=== PATIENT | female | born 2000 | race Caucasian/White ===

== ENCOUNTER 2023-07-26 11:19 | Emergency (ER) | payer BC, SELFPAY ==
[2023-07-26 11:26] VITALS: BP 146/82; PULSE 94; RESP 20; TEMP 36.8; O2SAT 97
--- NOTE | 2023-07-26 12:19 | ED.GENADULT ---
HPI - General Adult General Chief complaint: Upper Respiratory Infection Stated complaint: throat/cough/hard to breathe Source: patient Mode of arrival: ambulatory Limitations: no limitations History of Present Illness HPI narrative: Patient presents for evaluation of sick symptoms for last 3 days. Symptoms include sore throat, cough, and pleuritic chest pain. She has chronic chills, unchanged. She denies any fever, nausea, vomiting, diarrhea. No recent sick contacts to her knowledge. She does smoke several cigarettes per day She took one dose of mucinex but it did not help. Related Data Home Medications Medication Instructions Recorded Confirmed No Home Medications 07/26/23 07/26/23 Allergies Allergy/AdvReac Type Severity Reaction Status Date / Time cefdinir [From Omnicef] Allergy Rash Verified 07/26/23 11:38 Review of Systems Review of Systems: CONSTITUTIONAL: Denies fever, chills, or sweats. EYES: Denies visual changes, redness, or discharge. ENT: Reports sore throat. denies rhinorrhea, congestion, or otalgia. CARDIOVASCULAR: Denies chest pain, palpitations, or edema. RESPIRATORY: Reports cough and pleuritic chest discomfort. Denies shortness of breath. GASTROINTESTINAL: Denies abdominal pain, nausea, vomiting, or diarrhea. GENITOURINARY: Denies dysuria or hematuria. SKIN: Denies rash or itching. MUSCULOSKELETAL: Denies back pain, joint pain, or myalgia. NEUROLOGIC: Denies headache, numbness, dizziness, or weakness. PSYCHIATRIC: Denies anxiety or depression. [facility] Past Medical History Medical History No pertinent past medical history Surgical History Surgical History History of tonsillectomy Family History Family History Mother Family history non-contributory Social History Social History Smoking packs per day: 0.25 Smoking cigarettes per day: 5.0 Smoking status: Current every day smoker Substance use: current Substance use type: marijuana Living arrangements: with family Gender identity (if verbalized by the patient): Female Sexual Orientation (if Verbalized by the Patient): Straight or Heterosexual Spiritual care concerns: No Exam Narrative: GENERAL: Well-appearing, well-nourished, and in no acute distress. HEAD: Normocephalic, atraumatic. EYES: PERRLA and EOMI. ENT: Nares clear, no rhinorrhea or epistaxis. Mucous membranes moist. Oropharynx without tonsillar hypertrophy exudate or other lesions. Bilateral TMs pearly pelayo nonbulging NECK: Supple. No adenopathy or masses. No carotid bruits or JVD CHEST: Clear to auscultation. No respiratory distress. No wheezes rales or rhonchi HEART: Regular rate and rhythm. No murmur heard. Normal peripheral pulses. ABDOMEN: Soft, nontender, nondistended, normal active bowel sounds. EXTREMITIES: Normal range of motion. No edema. SKIN: Warm, dry, no rash. NEURO: No focal deficits. Alert and oriented x3. PSYCH: Normal mood and affect. Course Course Emergency Course: This is a 22-year-old female who presented for evaluation of sick symptoms. COVID, influenza, strep were all negative. I did offer to perform a chest x-ray which she declined. Increase hydration. Jijx-whl-izalzac agents for symptom management. Follow up with primary provider. Go to the ER for worsening symptoms. Patient in agreement with plan of care. Level of Care: Express Care Visit Vital Signs Vital signs: Vital Signs Temperature 36.8 C 07/26/23 11:26 Pulse Rate 94 07/26/23 11:26 Respiratory Rate 20 07/26/23 11:26 Blood Pressure 146/82 H 07/26/23 11:26 Pulse Oximetry 97 07/26/23 11:26 Oxygen Delivery Room Air 07/26/23 11:26 Temperature 36.8 C 07/26/23 11:26 Pulse Rate 94
== END 2023-07-26 12:20 | disposition home or self-care (01) ==
PROVIDERS: Emergency Provider Nurse Practitioner
DX: B34.9 Viral infection, unspecified (principal); Z20.822 Contact with and (suspected) exposure to COVID-19; F17.210 Nicotine dependence, cigarettes, uncomplicated; F12.90 Cannabis use, unspecified, uncomplicated
CPT/HCPCS: 87081; 87426; 87804; 87880; 99213; C9803; G0463

== ENCOUNTER 2024-04-01 08:08 | Emergency (ER) | payer SELFPAY ==
[2024-04-01 08:18] VITALS: BP 153/78; PULSE 151; RESP 18; TEMP 38.8; O2SAT 98
--- NOTE | 2024-04-01 08:29 | ED.URI ---
HPI - URI/Sore Throat General Chief Complaint: Upper Respiratory Infection Stated Complaint: Headache/Body Aches/Cough/Sore Throat Time Seen by Provider: 04/01/24 08:29 Source: patient Mode of arrival: ambulatory Limitations: no limitations History of Present Illness HPI Narrative: 33-year-old female presents with complaint of fever, chills, body aches, headache, fatigue for 2 days. Last took Tylenol yesterday afternoon to treat fever. No chest pain or shortness breath. All systems reviewed and negative except as noted above. Related Data Home Medications Medication Instructions Recorded Confirmed No Home Medications 07/26/23 07/26/23 Allergies Allergy/AdvReac Type Severity Reaction Status Date / Time cefdinir [From Omnicef] Allergy Rash Verified 07/26/23 11:38 Review of Systems Review of Systems: CONSTITUTIONAL: Reports fever, chills, or sweats. EYES: Denies visual changes, redness, or discharge. ENT: Denies rhinorrhea, congestion, sore throat, or otalgia. CARDIOVASCULAR: Denies chest pain, palpitations, or edema. RESPIRATORY: Denies cough or dyspnea. GASTROINTESTINAL: Denies abdominal pain, nausea, vomiting, or diarrhea. GENITOURINARY: Denies dysuria or hematuria. SKIN: Denies rash or itching. MUSCULOSKELETAL: Denies back pain, joint pain. Reports myalgia. NEUROLOGIC: Reports headache. Denies numbness, or weakness. PSYCHIATRIC: Denies anxiety or depression. All other systems reviewed are negative, except as documented in HPI. [facility] Past Medical History Medical History (Updated 04/01/24 @ 08:40 by Priya Howard NP) No pertinent past medical history Surgical History Surgical History History of tonsillectomy Family History Family History Mother Family history non-contributory Social History Social History Smoking packs per day: 0.25 Smoking cigarettes per day: 5.0 Smoking status: Current every day smoker Substance use: current Substance use type: marijuana Living arrangements: with family Gender identity (if verbalized by the patient): Female Sexual Orientation (if Verbalized by the Patient): Straight or Heterosexual Spiritual care concerns: No Comments At time of signature, agree with nursing past medical, surgical, social and family history. There is no relevant family history pertinent to the presenting complaint. Exam Narrative: GENERAL: This is a well-nourished, well-developed patient, ill-appearing but no acute distress HEAD: normocephalic, atraumatic. EYES: PERRL. Sclera clear/white. Vision is grossly intact. EARS: External ears normal, auditory canals clear and without drainage, TMs normal without perforation. Hearing grossly intact. NOSE: External nose normal with clear nasal drainage with erythema and swelling to bilateral nares THROAT: Mucous membranes moist, posterior pharynx clear. NECK: Neck supple, non-tender without lymphadenopathy, masses or thyromegaly. CARDIOVASCULAR: Regular rate and rhythm without murmurs, gallops, or rubs. RESPIRATORY: Clear to auscultation. Breath sounds equal bilaterally. No wheezes, rales, or rhonchi. SKIN: warm, Dry, intact with no suspicious lesions or rash, good texture and turgor. NEURO: awake, alert, and oriented to person, place and time. There were no obvious focal neurologic abnormalities. EXTREMITIES: No joint tenderness, effusion, or edema noted. Course Course Level of Care: Express Care Visit Vital Signs Vital signs: Vital Signs Temperature 38.8 C H 04/01/24 08:18 Pulse Rate 151 H 04/01/24 08:18 Respiratory Rate 18 04/01/24 08:18 Blood Pressure 153/78 H 04/01/24 08:18 Pulse Oximetry 98 04/01/24 08:18 Oxygen Delivery Room Air 04/01/24 08:18 Temperature 38.8 C H 04/01/24 08:18 Pulse Rate 151
[2024-04-01 08:31] LABS: EDSTREPNEGPOS1 Presumptive Negative
[2024-04-01 08:36] LABS: EDINFLUASCREEN Negative; EDINFLUBSCREEN Negative
[2024-04-01 08:46] VITALS: TEMP 38.8
[2024-04-01] MEDS: ACETAMINOPHEN 500 MG TABLET 1000 MG PO (08:46)
== END 2024-04-01 08:50 | disposition home or self-care (01) ==
PROVIDERS: Emergency Provider Nurse Practitioner Family
DX: U07.1 COVID-19 (principal); F17.210 Nicotine dependence, cigarettes, uncomplicated; F12.90 Cannabis use, unspecified, uncomplicated
CPT/HCPCS: 87081; 87426; 87804; 87880; 99213; A9270; G0463

== ENCOUNTER 2024-09-01 15:36 | Emergency (ER) | payer SELFPAY ==
--- NOTE | ~2024-09-01 | XR_ITS ---
EXAMINATION: XR foot LT min 3V DATE: 09/01/2024 16:07 INDICATION: Left foot pain. TECHNIQUE: 4 views of left foot were obtained. COMPARISON: None. FINDINGS: Alignment is normal. No fracture. There is mild osteoarthritis of first metatarsophalangeal joint and talonavicular joint. IMPRESSION: 1. Mild polyarticular osteoarthritis. Reviewed, dictated and finalized at location A. TESTER
--- OUTSIDE RECORDS SUMMARY | 2024-09-01 15:40 | XMS_ITS | Continuity of Care Document ---
Author Organization [facility] Address [address] [place] [address]- Care Team Providers Care Tobacco Prevention Health Educator Name Role Phone None, None Primary Care Physician Encounter Reshma Ankush [id number] Date(s): 08/23/23 - 08/23/23 [facility] [address] [place] [address]- Encounter Diagnosis Contusion of rib on right side(Discharge Diagnosis) - 08/23/23 Discharge Disposition: Routine Discharge Attending Physician: Emergency Services, Medicine Admitting Physician: Emergency Services, Medicine Referring Physician: None, None Allergies, Adverse Reactions, Alerts Substance Reaction Severity Status Omnicef Unknown Active Functional Status 08/23/23 Position in Bed Other (See Comment) Medications Robaxin 500 mg oral tablet 1,000 mg, = 2 Tablet, Orally, 4 Times Daily, for 3 Days, Acute, Dispense: 24 Tablet, Refills: 0, Total Refills: 1, 08/23/23 10:55:00 AM EST, 08/26/23 10:55:00 AM EST, [id number] Start Date: 08/23/23 Stop Date: 08/26/23 Status: Ordered Mental Status 08/23/23 Eye Opening Response Spontaneously Motor Response [place] 3 Obeys Commands Verbal Response [place] Oriented [place] Coma Score 15 Facial Symmetry Symmetric Neurological Defined Limits Awake And Al ert, Able to respond approp/follows commands, Oriented to person, place, and time Orientation Oriented x 3, Aware of Situation, Able to Follow Commands Characteristics of Speech Clear Level of Consciousness Alert Affect/Behavior Calm, Cooperative Neurological Symptoms None 08/23/23 Social Vulnerability Index Score 0.2953 Socioeconomic (SVI) 0.3114 Household Composition & Disability (SVI) 0.0869 Minority Status & Language (SVI) 0.5207 Housing Type & Transportation (SVI) 0.48 05 Problem List Condition Confirmation Course Effective Dates Status Health [facility] Informant Tobacco use Confirmed Active Diagnosis Diagnosis Type Effective Dates Health Status Cl inical Service Informant Contusion of rib on right side Discharge Diagnosis 08/23/23 Procedures Procedure Date Related Diagnosis Body Site Status left wrist surgery Comple mike tonsillectomy Completed Results Radiology Reports * Exam Date Time Procedure Performing Provider Status 08/23/23 10:25 AM XR Ribs Right with PA Chest Samson Palacios MD; Auth (Verified) Notes: (XR Ribs Right with PA Chest) Reason For Exam: fall, pain Report STUDY: XR Ribs Right with PA Chest DATE: 08/23/2023 10:16 AM COMPARISON: None INDICATION: Fall with right lower rib pain. FINDINGS: Single view chest and 3 additional views of the right ribs were obtained. No acute osseous abnormalities are identified. Specifically, no right rib fractures are appreciated. The lungs appear clear and well-expanded. No pneumothorax is seen. The cardiac silhouette mediastinum are unremarkable. IMPRESSION: 1. No active disease in the chest. 2. No rib fractures identified. Electronically Signed by: Chuck Palcaios MD This examination and reported findings have been reviewed and confirmed by the undersigned. Read By: Chuck Palacios MD I authorize my name to be Electronically affixed by using my unique signature access code. Vital Signs Most recent to oldest [Reference Range]: 1 2 Blood Pressure [90-139/60-89 mmHg] 119/8 2mmHg (08/23/23 9:21 AM) Mean Arterial Pressure, Cuff [70-106 mmH g] 94 mmHg (08/23/23 9:21 AM) Peripheral Pulse Rate [60-100 bpm] 75 bp m (08/23/23 9:21 AM) Respiratory Rate [14-20 br/min] 16 br/mi n (08/23/23 9:21 AM) Scale Type Stand up (08/23/23 9:45 AM) Stand up (08/23/23 9:43 AM) Temperature Oral [36.4-37.9 DegC] 36.6 D egC (08/23/23 9:21 AM) Weight 121 kg (08/23/23 9:45 AM) 121 kg (08/23/23 9:43 AM) Weight for Calculation 121.00 kg (08/23/23 9:45 AM) Social History Social History Type Response Smoking Status 10 or more cigarette s (1/2 pack or more)/day in last 30 days entered on: 08/23/23 Sex Hospital Discharge Instructions Patient Education 08/23/2023 09:46:23 [facility]-Understanding E-cigs and Vaping Understanding E-cigarettes and Vaping (Adults/Pediatrics) What are E-cigarettes? E-cigarettes use a battery to heat liquid into an aerosol. Then it is inhaled. There are different kinds of these devices (pods, cartridges and liquid). We do not know what chemicals are in them. We do know they all have propylene glycol, glycerin and flavorings. They are believed to be safe in their original form. What we do not know is how they change when they are heated and inhaled. Current studies show that many of the same chemicals in cigarettes are often in e-cigarettes. They may look like regular cigarettes, cigars, pipes, flashlights or pens. Some even look like a highlighter, a ruiz fob or even an apple watch. This makes it easy for teens to hide them from their parents or teachers. One of the most popular brands, Juul, looks like a USB flash drive. They are so popular that teens now call them ???Juuling?? . Are these devices safe? E-cigarettes may be harmful. They may have substances that cause cancer. Recent studies show vapingis also linked to chronic lung disease and asthma. Nicotine is in cigarettes and e-cigarettes. It is highly addictive. It raises your blood pressure, increases your heart rate and your chance of having a heart attack. Nicotine can have serious and lasting effects on the teen brain that control learning, mood, attention and impulse control. Using nicotine as a teenager can also increase the risk for future addiction to other drugs. Electronic cigarettes are possibly more addictive than cigarettes Nicotine is in both cigarettes and e-cigarettes. It has been determined to impact the brain in the same way as heroin and cocaine. The bad news is that the form of nicotine in e-cigarettes can resultin even higher levels of nicotine. One pod can have more nicotine than a pack of cigarettes. When the voltage is increased on the tank models that also increases the nicotine. Lastly, the nicotine level on the label is often much less than what is really in the vial. These devices are not a smoking cessation aid Although these devices have been marketed as a way to quit smoking, they have not been approved by the Food and Drug Administration (FDA) for this task. Recent studies show that people who used them to quit smoking ended up using both cigarettes and e-cigarettes. Adults are directed to use other FDA approved and proven tobacco treatment medicines. For Help: ??? [place] Tobacco Quitline, 1.800.Quit.Now (258.710.5829) ??? For [employer] Employees, call [employer] 433.829.6964 ??? [employer], 877.44U.QUIT ?? [facility] [employer]. (2014, revised 2020) All Rights Reserved [id number] Physician Emergency department Note * Cayden Guerin: PERFORM, MODIFY, MODIFY, MODIFY Event Display: ED Physician Progress Note Authored Date: [id number] Basic Information Time Seen: Yvette Desai NP / 08/23/2023 09:56 Time seen by provider: 10:08 History source: Pt Arrival mode: POV History limitation: None Chief Complaint back/rib pain History of Present Illness I have verified that the patient has granted permission for visitors to be present during??history taking, physical exam, and results review, including dx and impression. ? History Provided by:??Pt ?? 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 However, she denies any??hitting her head, neck pain, numbness, or weakness.There are no further complaints at this time. ? PCP:?None Review of Systems All pertinent components of a 10 point ROS are negative, except as noted in HPI. Physical Exam/Objective Vitals & Measurements most recent T:??36.6?C??(Oral)?? BP:??119/82?? HR:??75??(Peripheral)?? RR:??16?? SpO2:??98%?? Oxygen Therapy:??Room air?? WT:??121.00??kg??(WFC)?? Pulse ox interpretation:??WNL on RA Constitutional:?No acute distress. Head:?Atraumatic. ??Normocephalic.?? Eyes:?Normal sclera. ??PERRL.?? ENT:?Moist mucosa. ?? Oropharynx is clear and symmetric.??No tonsillar enlargement, exudates, orpus. No nasal discharge.?? Cardiovascular:?Well perfused. ??Equal pulses. ??Regular rate??and rhythm. ??Brisk??capillary refill. ?? Pulmonary/Chest:?No respiratory distress.?Airway patent. ??No tachypnea. ??No accessory muscle usage. CTAB. No rales, rhonchi, or wheezes. Tenderness to right lateral and anterior ribs just beneath the breast. No crepitus or flail chest. Abdominal:??Soft, non-distended.?Non-tender. BS present. Extremities:?No peripheral edema.??No deformities. Skin:?Normal color.??No rashes.??Good skin turgor. No bruising to the chest, abdomen, or flank. Neurological:?Alert, awake, and appropriate. ??Normal speech. ?? Back: No midline spinal tenderness. Medical Decision Making 2. ??Complexity of??orders, data review, and consults??is as follows: ?? The following independent historian provided assessment/history:??patient ?? Category I: Review of records was reviewed including [facility], accompanying paperwork, etc. ?? Independent review of Labs and other test??ordered was performed.? Scheduled Medications?? Dt/Tm Order Placed?Order Detail?? 08/23/2023 10:15 ?acetaminophen?1,000 mg, Orally, Tablet, ONCE, NOW, 08/23/23 10:15:00 EST, 08/23/23 10:15:00 EST? Pulmonary Services?? Dt/Tm Order Placed?Order Detail?? 08/23/2023 09:46 ?Tobacco Cessation Consult?Comment: ??Please complete the Tobacco Cessation Brief Intervention? Radiology Services?? Dt/Tm Order Placed?Order Detail?? 08/23/2023 10:15 ?XR Ribs Right with PA Chest?STAT, For: fall, pain, 08/23/23 10:15:00 EST? The??results available??at time of disposition. ?? Category 1: I have also reviewed all the radiologists interpretation, if available. I have gone over the results with the patient. The patient understands the results may be preliminary and should be contacted if any clinically important findings are noted on the final results. ?? Category 2: ?? Discharge Medications: The pt will be started on the following medications to address clinical findings and diagnoses fromthis emergency department visit: ?? Discharge Medications Robaxin 500 mg oral tablet:??1,000 mg = 2 Tablet, Orally, 4 Times Daily, for 3 Days, 24 Tablet, 0 Refill(s) ?Ordered by:??Yvette Desai NP - 08/23/2023 10:55 ? They understand to follow up as recommended in discharge instructions for further management of diagnosis and/or medications. Re-Assessment Discussed the case with the patient. Discussed the plan for??radiology imaging??to further investigate the patient's condition. Patient understands and is agreeable to the plan. There are no further questions or complaints at time of initial evaluation. ?? 10:57 I re-evaluated the patient, who is resting comfortably and feels comfortable going home.??I discussed??negative XRs and symptomatic??care at home. All questions were appropriately addressed andanswered. I discussed that the patient should f/u with PCP as instructed. Counseling is provided as documented below. RTER instructions were given. The patient is stable for discharge.? Attending??physician: Dr. Hoskins Condition Condition:??Improved, Stable Discharged:??Time 10:57, to home Assessment/Plan Diagnosis: 1.) Acute right rib contusion Patient Education [facility]-Understanding E-cigs and Vaping Follow Up With When Contact Information Follow up with primary care provider Within 3 to 5 days Additional Instructions: Chronic Problem List Tobacco use Procedure/Surgical History ???left wrist surgery???tonsillectomy Medications Home Medications (1) Active Robaxin 500 mg oral tablet??1,000 mg = 2 Tablet, Orally, 4 Times Daily Medication Administration Given acetaminophen, 1000 mg, Orally Allergies Omnicef Social History Alcohol Denies Electronic Cigarette/Vaping E-Cigarette Use 1-25 inhales/day. Substance Abuse Denies Tobacco Tobacco Use: 10 or more cigarettes (1/2 pack or more)/day in last 30 days. Family History None reported Diagnostic Results XR Ribs Right with PA Chest ?? 08/23/23 10:26:18 IMPRESSION: 1. No active disease in the chest. 2. No rib fractures identified. ?? Cayden Gueirn Electronically Signed on 08/23/23 20:55 EST Yvette Desai NP Nathanael Hoskins MD Patient Care team information Care Team Personnel Name: Alaina Colon Position: EV ED: Rotary Veneer Machine Operator Member Role: ED Rotary Veneer Machine Operator Name: Noni Mercer RN Position: Nurse - Emergency Medicine Member Role: Registered Nurse Name: Yvette Desai NP Position: OE: Emergency ANYI Member Role: ED Nurse Practioner
--- OUTSIDE RECORDS SUMMARY | 2024-09-01 15:40 | XMS_ITS | Continuity of Care Document ---
Author Name [employer] Organization Interface Problems Problem Status Onset Date Classification Date Reported Comments Source Contusion of right chest wall 08/23/2023 04/04/2024 [facility] Contusion of rib on right side Active 08/23/2023 04/04/2024 [facility] Tobacco use Active 04/04/2024 [facility] Nicotine dependence (disorder) 04/04/2024 [facility] Fall in bath or shower (finding) 04/04/2024 [facility] Medications Medication Details Route Status Patient Instructions Ordering Provider Order Date Source Robaxin 500 mg oral tablet
1,000 mg, = 2 Tablet, Orally, 4 Times Daily, for 3 Days, Acute, Dispense: 24 Tablet, Refills: 0, Total Refills: 1, 08/23/23 10:55:00 AM EST, 08/26/23 10:55:00 AM EST, [id number] Active 08/23/20 [facility] Allergies, Adverse Reactions, Alerts Substance Category Reaction Severity Reaction type Status Date Reported Comments Source Omnicef Assertion Unknown Drug allergy Active [facility] Immunizations Immunization Date Given Site Status Last Updated Comments So urce Results Order Name Results Value Reference Range Date Interpretatio n Comments Source Vital Signs Vital Sign Value Date Comments Source Weight for Calculation 121.00 kg 08/23/2023 [facility] Weight 121 kg 08/23/2023 [facility] Weight 121 kg 08/23/2023 [facility] Respiratory Rate 16 br/min 08/23/2023 [facility] Temperature Oral 36.6 Tamie 08/23/2023 [facility] Peripheral Pulse Rate 75 bpm 08/23/2023 [facility] Systolic Blood Pressure 119 mm[Hg] 08/23/2023 [facility] Diastolic Blood Pressure 82 mm[Hg] 08/23/2023 [facility] Mean Arterial Pressure, Cuff 94 mm[Hg] 08/23/2023 [facility] Encounters Location Location Details Encounter Type Encounter Number Reason For Visit Attending Provider ADM Date DC Date Status Source [facility] Emergency [id number] Yvette Desai 08/23 [facility] Procedures Procedure Code Date Perfomer Comments Source left wrist surgery I [facility] tonsillectomy [facility]
--- OUTSIDE RECORDS SUMMARY | 2024-09-01 15:40 | XMS_ITS | Continuity of Care Document ---
Author Organization [facility] Address [address] [place] [address]- Care Team Providers Care Gmat Tutor Name Role Phone None, None Primary Care Physician Encounter Reshma Ankush [phone] Date(s): 08/23/23 - 08/23/23 [address] [place] [address]- Encounter Diagnosis Contusion of rib on right side(Discharge Diagnosis) - 08/23/23 Contusion of right front wall of thorax, initial encounter(Discharge Diagnosis) - Nicotine dependence, cigarettes, uncomplicated(Discharge Diagnosis) - Fall in (into) shower or empty bathtub, initial encounter(Discharge Diagnosis) - Discharge Disposition: Routine Discharge Attending Physician: Yvette Desai NP Admitting Physician: Yvette Desai NP Referring Physician: None, None Allergies, Adverse Reactions, Alerts Substance Criticality Severity Reaction Reaction Severity Status Omnicef Unable to assess criticality Unknown Active Functional Status 08/23/23 Position in Bed Other (See Comment) Mental Status 08/23/23 Eye Opening Response Spontaneously Motor Response [place] 3 Obeys Commands Verbal Response Bacilio Oriented [place] Coma Score 15 Facial Symmetry Symmetric Neurological [...] rib fractures identified. Electronically Signed by: Chuck Palacios MD This examination and reported findings have [...] last 30 days entered on: 08/23/23 Sex Sex Representation Female (finding) Hospital Discharge Instructions Patient Education 08/23/2023 09:46:23 [facility]-Understanding E-cigs and Vaping Understanding E-cigarettes and Vaping [...] most popular brands, Juul, looks like a [employer] flash drive. They are so popular that [...] proven tobacco treatment medicines. For Help: ??? [place] Tobacco Quitline, 1.800.Quit.Now (454.689.9093) ??? For [employer] Employees, call [employer] 547.037.3686 ??? www.Dajie.ChatLingual, 877.44U.QUIT ?? [place] [employer]. (2014, revised 2020) All Rights Reserved -[id number] Physician Emergency department Note * Cayden Guerin: PERFORM, MODIFY, MODIFY, MODIFY Event Display: ED Physician Progress Note Authored Date: [id number] Basic Information Time Seen: Yvette Desai NP [...] ? History Provided by:??Pt ?? Chief Complaint:??Fall Onset:??[facility] Timing:??1x Location:??Constitutional Severity:??Moderate Modifying Factors:??None ?? Additional History:?The pt is a??22 year old??y/o??female??with Hx of tobacco use??who presents to the ED c/o??fall onset??[facility].??Pt states that she was in the shower [employer] when she slipped and fell,??hitting her right [...] 1.) Acute right rib contusion Patient Education [facility]-Understanding E-cigs and Vaping Follow Up With When [...] 2. No rib fractures identified. ?? Cayden Guerin Electronically Signed on 08/23/23 20:55 EST Yvette Desai NP Electronically Signed on 08/25/23 14:29 EST Nathanael Hoskins MD Patient Care team information Care Team Related Persons Name: Zeyad Armstrong
[2024-09-01 15:57] VITALS: BP 146/81; PULSE 96; RESP 16; TEMP 36.9; O2SAT 99
--- NOTE | 2024-09-01 16:27 | ED_ITS ---
HPI - General Adult General Chief complaint: Extremity Injury, Lower Stated complaint: Left Foot Injury Time Seen by Provider: 09/01/24 16:20 Source: patient, RN notes reviewed and old records reviewed Mode of arrival: ambulatory Limitations: no limitations History of Present Illness HPI narrative: 23 year old female presents to [facility] care with complaints of pain to her left foot since Thursday. She reports that she stepped down and felt a pop in her foot on Thursday and now the lateral side of her foot is swollen and bruised and she has pain in the ball of her foot and under her toes. She denies any known injury with no deformity noted.Patient reports that she has taken Ibuprofen and has iced and applied heat to her foot. MD complaint: left foot Onset (ago): day(s) (2) Severity scale (1-10): 2 Treatments prior to arrival: NSAID, cold therapy and heat therapy Related Data Allergies Allergy/AdvReac Type Severity Reaction Status Date / Time cefdinir (From Omnicef) Allergy Rash Verified 09/01/24 15:52 Review of Systems Review of Systems: CONSTITUTIONAL: Denies fever, chills, or sweats. EYES: Denies visual changes, redness, or discharge. ENT: Denies rhinorrhea, congestion, sore throat, or otalgia. CARDIOVASCULAR: Denies chest pain, palpitations, or edema. RESPIRATORY: Denies cough or dyspnea. GASTROINTESTINAL: Denies abdominal pain, nausea, vomiting, or diarrhea. GENITOURINARY: Denies dysuria or hematuria. SKIN: Denies rash or itching. MUSCULOSKELETAL: Denies back pain,reports pain to lateral aspect of her left foot and to ball of foot under her toes with no known injury , or myalgia. NEUROLOGIC: Denies headache, numbness, or weakness. PSYCHIATRIC: Denies anxiety or depression. All systems reviewed & are unremarkable except as noted in HPI and below [facility] Past Medical History Medical History (Updated 09/02/24 @ 00:00 by [facility] D[facility]) No pertinent past medical history Surgical History Surgical History History of tonsillectomy Family History Family History Mother Family history non-contributory Social History Social History (Updated 09/04/24 @ 10:31 by Krystle Da Silva NP) Smoking packs per day: 0.25 Smoking cigarettes per day: 5.0 Smoking status: Current every day smoker Tobacco type: e-cigarettes/vaping Additional smoking assessment comments: former cigarette use now vapes Alcohol intake: unknown Substance use: current Substance use type: marijuana Living arrangements: with family Gender identity (if verbalized by the patient): Female Sexual Orientation (if Verbalized by the Patient): Straight or Heterosexual Spiritual care concerns: No Comments At time of signature, agree with nursing past medical, surgical, social and family history. There is no relevant family history pertinent to the presenting complaint Exam Narrative: GENERAL: Well-appearing, well-nourished, and in no acute distress. HEAD: Normocephalic, atraumatic. EYES: PERRLA and EOMI. ENT: Nares clear, no rhinorrhea or epistaxis. Mucous membranes moist. NECK: Supple. no lymphadenopathy CHEST: Clear to auscultation. No respiratory distress.SAO2 99% on room air HEART: Regular rate and rhythm. No murmur heard. Normal peripheral pulses. ABDOMEN: Soft, nontender, nondistended, normal active bowel sounds. EXTREMITIES: Normal range of motion. No edema.Exception noted to left foot with mild bruising lateral left foot and mild swelling with discomfort also under ball of foot under toe. strong pedal pulse, no tingling or numbness reported, able to flex and extend toes. reports increased pain with weight bearing. SKIN: Warm, dry, no rash. NEURO: No focal deficits. Alert and oriented x3. Course Course Emergency Course: Patient is aware of diagnosis, understands and agrees to treatment plan.? Anticipatory guidance given.? Patient agrees to follow-up as directed and is aware of reasons to seek care at the emergency department. Portions of this record may have been created with voice recognition software Level of Care: Express Care Visit Vital Signs Vital signs: Vital Signs Temperature 36.9 C 09/01/24 15:57 Pulse Rate 96 09/01/24 15:57 Respiratory Rate 16 09/01/24 15:57 Blood Pressure 146/81 H 09/01/24 15:57 Pulse Oximetry 99 09/01/24 15:57 Oxygen Delivery Room Air 09/01/24 15:57 Temperature 36.9 C 09/01/24 15:57 Pulse Rate 96 09/01/24 15:57 Respiratory Rate 16 09/01/24 15:57 Blood Pressure 146/81 H 09/01/24 15:57 Pulse Oximetry 99 09/01/24 15:57 Oxygen Delivery Room Air 09/01/24 15:57 Reviewed Medical Decision Making MDM Narrative Medical decision making narrative: Exam findings and imaging show no acute concerns or changes; patient is non- toxic appearing and is in no distress.? Patient is appropriate for outpatient treatment and follow-up Differential Diagnosis Differential Diagnosis: pain to left foot , strain of left foot, osteoarthritis of left foot Medical Records Medical records reviewed: Yes I reviewed the external patient's medical records. Vital Signs Vital Signs: Vital Signs Temperature 36.9 C 09/01/24 15:57 Pulse Rate 96 09/01/24 15:57 Respiratory Rate 16 09/01/24 15:57 Blood Pressure 146/81 H 09/01/24 15:57 Pulse Oximetry 99 09/01/24 15:57 Oxygen Delivery Room Air 09/01/24 15:57 Temperature 36.9 C 09/01/24 15:57 Pulse Rate 96 09/01/24 15:57 Respiratory Rate 16 09/01/24 15:57 Blood Pressure 146/81 H 09/01/24 15:57 Pulse Oximetry 99 09/01/24 15:57 Oxygen Delivery Room Air 09/01/24 15:57 reviewed Imaging Data Attestation: I personally reviewed and interpreted this imaging study as follows: My impression: mild polyarticular osteoarthritis left foot, no fracture or misalignment noted Radiologist's impression: [place] [address] XRay Report Signed Patient: Veronica Christopher : 2000 MR#: [id number] Age: 23 Acct:[id number] Loc: [facility] ADM Date: 09/01/24Attending Dr: Ordering Physician: Krystle Da Silva APRN Date of Service: 09/01/24 Procedure(s): XR foot LT min 3V Accession Number(s): [id number] cc: FIXING CARPENTER PHYSICIAN; Krystle Da Silva APRN~ EXAMINATION: XR foot LT min 3V DATE: 09/01/2024 16:07 INDICATION: Left foot pain. TECHNIQUE: 4 views of left foot were obtained. COMPARISON: None. FINDINGS: Alignment is normal. No fracture. There is mild osteoarthritis of first metatarsophalangeal joint and talonavicular joint. IMPRESSION: 1. Mild polyarticular osteoarthritis. Reviewed, dictated and finalized at location A. T PLANT OPERATOR HELPER Dictated By: Yair Parks MD 09/01/24 1615 Signed By: <Electronically signed by Yair Parks MD in OV> Critical Care Time Critical Care Time Critical Care Time: No Discharge Plan Discharge Clinical Impression: Foot pain, left Patient Disposition: Home, Self-Care Condition: Stable Instructions: Antibiotic Form, Osteoarthritis (ED), Arthralgia (ED) Additional Instructions: Elastic wrap or orthopedic splint as directed for comfort for the next 5-7 days Tylenol for lesser pain Ibuprofen regularly for the next 2-3 days for the inflammation Follow-up with orthopedic surgeon if any further pain Follow-up with PCP if further problems or concerns Ice to the area 20-30 minutes 4-6 times a day Elevate above heart Prednisone as ordered take with food If your symptoms persist, change or worsen significantly before you can contact your personal physician then please, without delay, go to the emergency department for further evaluation. Follow-up with PCP in 7-10 days or sooner if needed Follow up with PCP soon in regards to your blood pressure which is elevated above threshold for referral. Blood pressure above 120/80 may indicate pre- hypertension. 146/81 Patient Language: Latvian Prescriptions: New prednisone 20 mg tablet 20 mg PO BID Qty: 10 0RF Follow-up/Referrals: PHYSICIAN,FIXING CARPENTER [Primary Care Provider] - Time of Disposition: 16:35 Quality [place] Coma Scale Eyes: Open Verbal: Oriented and Alert Motor: Follows Commands Bacilio Coma Total Score: 15
== END 2024-09-01 16:40 | disposition home or self-care (01) ==
PROVIDERS: Emergency Provider Registered Nurse
DX: M79.672 Pain in left foot (principal); F17.290 Nicotine dependence, other tobacco product, uncomplicated
CPT/HCPCS: 73630; 99213; G0463

== ENCOUNTER 2024-11-05 17:22 | Emergency (ER) | payer BC, SELFPAY ==
[2024-11-05 17:30] VITALS: BP 139/82; PULSE 107; RESP 20; TEMP 37.2; O2SAT 98
--- NOTE | 2024-11-05 18:41 | ED_ITS ---
HPI - General Adult General Chief complaint: Upper Respiratory Infection Stated complaint: cough,chest tight, rattling when breathing Source: patient Mode of arrival: ambulatory Limitations: no limitations History of Present Illness HPI narrative: Patient presents for evaluation of sick symptoms for last 4 days. Symptoms include chills, nausea, vomiting, diarrhea, cough, shortness of breath, wheezing, and sore throat. She is not sure whether she has experienced a fever. No recent sick contacts to her knowledge. She has been taking some kxhz-mry-pcfezmy cough cold medication for symptoms. She is a current everyday smoker. She is currently on doxycycline for chlamydia Related Data Home Medications ?Medication ?Instructions ?Recorded ?Confirmed ?Last Taken ?Type Doxycycline 11/05/24 Unknown History Allergies Allergy/AdvReac Type Severity Reaction Status Date / Time cefdinir (From Omnicef) Allergy Rash Verified 11/05/24 17:39 Review of Systems Review of Systems: CONSTITUTIONAL: Reports chills. Denies fever. EYES: Denies visual changes, redness, or discharge. ENT: Reports sinus congestion, sore throat. Denies otalgia CARDIOVASCULAR: Denies chest pain, palpitations, or edema. RESPIRATORY: Reports cough, shortness of breath, wheezing. GASTROINTESTINAL: Reports nausea,, diarrhea GENITOURINARY: Denies dysuria or hematuria. SKIN: Denies rash or itching. MUSCULOSKELETAL: Denies back pain, joint pain, or myalgia. NEUROLOGIC: Denies headache, numbness, dizziness, or weakness. PSYCHIATRIC: Denies anxiety or depression. [facility] Past Medical History Medical History No pertinent past medical history Surgical History Surgical History History of tonsillectomy Family History Family History Mother Family history non-contributory Social History Social History Smoking packs per day: 0.25 Smoking cigarettes per day: 5.0 Smoking status: Current every day smoker Tobacco type: e-cigarettes/vaping Additional smoking assessment comments: former cigarette use now vapes Alcohol intake: unknown Substance use: current Substance use type: marijuana Living arrangements: with family Gender identity (if verbalized by the patient): Female Sexual Orientation (if Verbalized by the Patient): Straight or Heterosexual Spiritual care concerns: No Exam Narrative: GENERAL: Well-appearing, well-nourished, and in no acute distress. HEAD: Normocephalic, atraumatic. EYES: PERRLA and EOMI. ENT: Nares clear, no rhinorrhea or epistaxis. Mucous membranes moist. Oropharynx without tonsillar hypertrophy exudate or other lesions. Bilateral TMs pearly pelayo nonbulging NECK: Supple. No adenopathy or masses. No carotid bruits or JVD CHEST: Wheezing present in bilateral lung hernandez. Cough present on exam. HEART: Regular rate and rhythm. No murmur heard. Normal peripheral pulses. ABDOMEN: Soft, nontender, nondistended, normal active bowel sounds. EXTREMITIES: Normal range of motion. No edema. SKIN: Warm, dry, no rash. NEURO: No focal deficits. Alert and oriented x3. PSYCH: Normal mood and affect. Course Course Emergency Course: This is a 23-year-old female who presented for evaluation of sick symptoms. She declined testing today including that for flu, COVID, and strep. She also declined chest x-ray. Elected to move forward with empiric treatment for pneumonia as she is a smoker and has wheezing noted bilaterally. She is already on doxycycline. Will add Augmentin. Prednisone for wheezing and albuterol for shortness of breath. She declined antiemetic. She was advised to follow up with primary provider. Advised on smoking cessation. Go to the emergency department for worsening symptoms. Patient in agreement with plan of care. Level of Care: Express Care Visit Vital Signs Vital signs: Vital Signs Temperature 37.2 C 11/05/24 17:30 Pulse Rate 107 H 11/05/24 17:30 Respiratory Rate 20 11/05/24 17:30 Blood Pressure 139/82 11/05/24 17:30 Pulse Oximetry 98 11/05/24 17:30 Oxygen Delivery Room Air 11/05/24 17:30 Temperature 37.2 C 11/05/24 17:30 Pulse Rate 107 H 11/05/24 17:30 Respiratory Rate 20 11/05/24 17:30 Blood Pressure 139/82 11/05/24 17:30 Pulse Oximetry 98 11/05/24 17:30 Oxygen Delivery Room Air 11/05/24 17:30 Medical Decision Making Vital Signs Vital Signs: Vital Signs Temperature 37.2 C 11/05/24 17:30 Pulse Rate 107 H 11/05/24 17:30 Respiratory Rate 11/05/24 17:30 Blood Pressure 139/82 11/05/24 17:30 Pulse Oximetry 98 11/05/24 17:30 Oxygen Delivery Room Air 11/05/24 17:30 Temperature 37.2 C 11/05/24 17:30 Pulse Rate 107 H 11/05/24 17:30 Respiratory Rate 11/05/24 17:30 Blood Pressure 139/82 11/05/24 17:30 Pulse Oximetry 98 11/05/24 17:30 Oxygen Delivery Room Air 11/05/24 17:30 Discharge Plan Discharge Clinical Impression: At high risk for pneumonia Patient Disposition: Home, Self-Care Condition: Stable Instructions: Antibiotic Form, Pneumonia (ED) Patient Language: Pakistani Prescriptions: New amoxicillin-pot clavulanate 875-125 mg tablet 1 tablet PO Q12H Qty: 20 0RF prednisone 50 mg tablet 50 mg PO DAILY Qty: 5 0RF albuterol sulfate 90 mcg/actuation aerosol powdr breath activated 2 inh inhalation Q6H PRN (Reason: shortness of breath) Qty: 1 0RF No Action Doxycycline Follow-up/Referrals: Zachary Cote MD [Physician] - Stand Alone Forms: Work/School Release IP Time of Disposition: 18:38
== END 2024-11-05 18:43 | disposition home or self-care (01) ==
PROVIDERS: Emergency Provider Nurse Practitioner
DX: R05.9 Cough, unspecified (principal); F17.290 Nicotine dependence, other tobacco product, uncomplicated
CPT/HCPCS: 99213; G0463

== ENCOUNTER 2024-11-17 08:13 | Emergency (ER) | payer BC, SELFPAY ==
[2024-11-17 08:22] VITALS: BP 133/84; PULSE 81; RESP 20; TEMP 37.1; O2SAT 100
--- NOTE | 2024-11-17 08:27 | ED.FEMALEGU ---
HPI - Female Genitourinary General Chief complaint: [employer] [place] Stated complaint: yeast infection` Source: patient and RN notes reviewed Mode of arrival: ambulatory Limitations: no limitations History of Present Illness HPI Narrative: 24 y/o female presented for concern for vaginal yeast infection. Endorses vaginal itching, burning and thick clumpy white discharge x5 days. Also reports some swelling and redness. Not taking anything for this.. Pt states she completed treatment for chlamydia with doxycyclineand overlapped Augmentin for possible pneumonia on 11/05/24. She says she had a prescription for fluconazole but it was thrown away by her . LMP 08/2024; preg test negative when tested for chlamydia. Endorses her was on a dating site, which prompted her STD testing. She declines any testing today, stating she has a scheduled follow up appointment at the clinic with her . denies irregular bleeding, vaginal pain or lesions, hematuria, nausea, vomiting, abdominal pain, flank pain, constipation, diarrhea, fevers or chills. Related Data Allergies Allergy/AdvReac Type Severity Reaction Status Date / Time cefdinir (From Omnicef) Allergy Rash Verified 11/17/24 08:39 Review of Systems Review of Systems: per [facility] Past Medical History Medical History No pertinent past medical history Surgical History Surgical History History of tonsillectomy Family History Family History Mother Family history non-contributory Social History Social History Smoking packs per day: 0.25 Smoking cigarettes per day: 5.0 Smoking status: Current every day smoker Tobacco type: e-cigarettes/vaping Additional smoking assessment comments: former cigarette use now vapes Alcohol intake: unknown Substance use: current Substance use type: marijuana Living arrangements: with family Gender identity (if verbalized by the patient): Female Sexual Orientation (if Verbalized by the Patient): Straight or Heterosexual Spiritual care concerns: No Comments At time of signature, I have reviewed and agree with nursing past medical, surgical, social and family history unless otherwise noted. Please see nursing chart for further information. There is no relevant family history pertinent to the presenting complaint Exam Narrative: GENERAL: Well-appearing ENT: Mucous membranes pink and moist. CHEST: No respiratory distress. Clear to auscultation. HEART: Regular rate and rhythm. ABDOMEN: Soft, nontender, nondistended, normal active bowel sounds. No CVA tenderness SKIN: Warm, dry, no rash. NEURO: No focal deficits. Alert and oriented x3. Gait steady. PSYCH: Normal affect. Course Course Emergency Course: Patient is aware of diagnosis, understands and agrees to treatment plan. Anticipatory guidance given. Patient agrees to follow-up as directed and is aware of reasons to seek care at the emergency department. Portions of this record may have been created with voice recognition software Level of Care: Express Care Visit Vital Signs Vital signs: Vital Signs Temperature 98.7 F 11/17/24 08:22 Pulse Rate 81 11/17/24 08:22 Respiratory Rate 20 11/17/24 08:22 Blood Pressure 133/84 11/17/24 08:22 Pulse Oximetry 100 11/17/24 08:22 Oxygen Delivery Room Air 11/17/24 08:22 Temperature 98.7 F 11/17/24 08:22 Pulse Rate 81 11/17/24 08:22 Respiratory Rate 20 11/17/24 08:22 Blood Pressure 133/84 11/17/24 08:22 Pulse Oximetry 100 11/17/24 08:22 Oxygen Delivery Room Air 11/17/24 08:22 Reviewed MDM - Female Genitourinary MDM Narrative Medical decision making narrative: urine preg neg. Declined repeat of std testing, pt will f/u at the clinic for std retesting. Will culture urine. Rx fluconazole. Discussed physical exam findings. Advised supportive measures and signs/symptoms to go to the ER. Pt is appropriate for outpt treatment and f/u. Differential Diagnosis Differential diagnosis: Likely urinary tract infection, bacterial vaginosis, trichomoniasis, cervicitis, vaginitis and cystitis Lab Data Labs: Lab Results 11/17/24 Range/Units 08:35 POC Urine Color Yellow POC Urine Clarity Cloudy POC Urine pH 6.5 POC Ur Specif [place] 1.020 POC Urine Protein Negative (Negative) POC Ur Glucose (UA) Negative (Negative) POC Urine Ketones Negative (Negative) POC Urine Blood Trace (Negative) POC Urine Nitrite Negative (Negative) POC Urine Bilirubin Negative (Negative) POC Urine Urobilinogen 0.2 POC U Leukocyte Esteras 1+ (Negative) POC Urine HCG, Qual Negative (Negative) Discharge Plan Discharge Clinical Impression: Vaginitis Patient Disposition: Home, Self-Care Condition: Stable Instructions: Antibiotic Form, Yeast Infection (ED) Additional Instructions: Keep skin clean, dry and well aerated Wear cotton underpants. Double rinse underpants after washing. Avoid fabric softeners for underpants and swimsuits. Avoid tights, leotards, leggings. Wearing loose fitting pants/skirts allow air to circulate. Avoid wearing wet swimsuits for long periods of time. Avoid bubble baths or perfumed soap Change tampons/pads frequently Rinse genital area well and pat dry gently Cool compresses may help relieve the redness/irritation. Aquaphor, vaseline or A&D ointment may help protect the skin. take medication as directed Follow up with your primary care provider And OBGYN keep scheduled appointment at the clinic for STD follow-up Go to the ER for worsening symptoms or concerns Patient Language: [place] Citizen Prescriptions: New fluconazole 150 mg tablet 150 mg PO DAILY Qty: 2 0RF Follow-up/Referrals: PHYSICIAN,STOCK CLIPPER [Primary Care Provider] -
[2024-11-17 08:47] LABS: BEDSIDEPREGUCG Negative (Negative); EDUAAPPEAR Cloudy; EDUABILI Negative (Negative); EDUABLOOD Trace (Negative); EDUACOLOR1 Yellow; EDUAGLUCOSE Negative (Negative); EDUAKETONE Negative (Negative); EDUALEUKO 1+ (Negative); EDUANITRATE Negative (Negative); EDUAPH 6.5; EDUAPROTEIN Negative (Negative); EDUAUROBILI 0.2
== END 2024-11-17 08:55 | disposition home or self-care (01) ==
PROVIDERS: Emergency Provider Nurse Practitioner Family
DX: N76.0 Acute vaginitis (principal); F17.290 Nicotine dependence, other tobacco product, uncomplicated
CPT/HCPCS: 81003; 81025; 87086; 99213; G0463

== ENCOUNTER 2024-11-29 15:19 | Emergency (ER) | payer BC, SELFPAY ==
[2024-11-29 15:26] VITALS: BP 147/89; PULSE 95; RESP 20; TEMP 36.9; O2SAT 100
--- NOTE | 2024-11-29 15:40 | ED.GENADULT ---
HPI - General Adult General Chief complaint: Wound/Laceration Stated complaint: Bee Sting Source: patient, RN notes reviewed and old records reviewed Mode of arrival: ambulatory Limitations: no limitations History of Present Illness HPI narrative: concerned for bee sting to left ring finger with no acute swelling noted . Patient reports Related Data Home Medications ?Medication ?Instructions ?Recorded ?Confirmed ?Last Taken ?Type albuterol sulfate 90 mcg/actuation inhalation 11/29/24 Unknown History aerosol inhaler Allergies Allergy/AdvReac Type Severity Reaction Status Date / Time cefdinir (From Omnicef) Allergy Rash Verified 11/29/24 15:22 Review of Systems Review of Systems: CONSTITUTIONAL: Denies fever, chills, or sweats. EYES: Denies visual changes, redness, or discharge. ENT: Denies rhinorrhea, congestion, sore throat, or otalgia. CARDIOVASCULAR: Denies chest pain, palpitations, or edema. RESPIRATORY: Denies cough or dyspnea. GASTROINTESTINAL: Denies abdominal pain, nausea, vomiting, or diarrhea. GENITOURINARY: Denies dysuria or hematuria. SKIN: Denies rash or itching. MUSCULOSKELETAL: Denies back pain, joint pain, or myalgia. NEUROLOGIC: Denies headache, numbness, or weakness. PSYCHIATRIC: Denies anxiety or depression. All systems reviewed & are unremarkable except as noted in HPI and below PMFSH Past Medical History Medical History No pertinent past medical history Surgical History Surgical History History of tonsillectomy Family History Family History Mother Family history non-contributory Social History Social History Smoking packs per day: 0.25 Smoking cigarettes per day: 5.0 Smoking status: Current every day smoker Tobacco type: e-cigarettes/vaping Additional smoking assessment comments: former cigarette use now vapes Alcohol intake: unknown Substance use: current Substance use type: marijuana Living arrangements: with family Gender identity (if verbalized by the patient): Female Sexual Orientation (if Verbalized by the Patient): Straight or Heterosexual Spiritual care concerns: No Comments At time of signature, agree with nursing past medical, surgical, social and family history. There is no relevant family history pertinent to the presenting complaint Exam Narrative: GENERAL: Well-appearing, well-nourished, and in no acute distress. HEAD: Normocephalic, atraumatic. EYES: PERRLA and EOMI. ENT: Nares clear, no rhinorrhea or epistaxis. Mucous membranes moist. NECK: Supple. CHEST: Clear to auscultation. No respiratory distress. HEART: Regular rate and rhythm. No murmur heard. Normal peripheral pulses. ABDOMEN: Soft, nontender, nondistended, normal active bowel sounds. EXTREMITIES: Normal range of motion. No edema. SKIN: Warm, dry, no rash. NEURO: No focal deficits. Alert and oriented x3. Course Course Emergency Course: Patient is aware of diagnosis, understands and agrees to treatment plan.? Anticipatory guidance given.? Patient agrees to follow-up as directed and is aware of reasons to seek care at the emergency department. Portions of this record may have been created with voice recognition software Level of Care: Express Care Visit Vital Signs Vital signs: Vital Signs Temperature 36.9 C 11/29/24 15:26 Pulse Rate 95 11/29/24 15:26 Respiratory Rate 20 11/29/24 15:26 Blood Pressure 147/89 H 11/29/24 15:26 Pulse Oximetry 100 11/29/24 15:26 Oxygen Delivery Room Air 11/29/24 15:26 Temperature 36.9 C 11/29/24 15:26 Pulse Rate 95 11/29/24 15:26 Respiratory Rate 20 11/29/24 15:26 Blood Pressure 147/89 H 11/29/24 15:26 Pulse Oximetry 100 11/29/24 15:26 Oxygen Delivery Room Air 11/29/24 15:26 Reviewed Medical Decision Making MDM Narrative Medical decision making narrative: Exam findings and imaging show no acute concerns or changes; patient is non-toxic appearing and is in no distress.? Patient is appropriate for outpatient treatment and follow-up Vital Signs Vital Signs: Vital Signs Temperature 36.9 C 11/29/24 15:26 Pulse Rate 95 11/29/24 15:26 Respiratory Rate 20 11/29/24 15:26 Blood Pressure 147/89 H 11/29/24 15:26 Pulse Oximetry 100 11/29/24 15:26 Oxygen Delivery Room Air 11/29/24 15:26 Temperature 36.9 C 11/29/24 15:26 Pulse Rate 95 11/29/24 15:26 Respiratory Rate 20 11/29/24 15:26 Blood Pressure 147/89 H 11/29/24 15:26 Pulse Oximetry 100 11/29/24 15:26 Oxygen Delivery Room Air 11/29/24 15:26 Critical Care Time Critical Care Time Critical Care Time: No Discharge Plan Discharge Clinical Impression: Accidental bee sting Patient Disposition: Home, Self-Care Condition: Stable Instructions: Antibiotic Form, Insect Bite or Sting (ED) Additional Instructions: Zyrtec daily for the next 10 days Pepcid 20 mg daily for the next 10 days Medrol Dosepak take as prescribed Benadryl 25-50 mg every 6 hours as needed for itching If your symptoms persist, change or worsen significantly before you can contact your personal physician then please, without delay, go to the emergency department for further evaluation. Follow-up with PCP in 7-10 days or sooner if needed Follow up with PCP soon in regards to your blood pressure which is elevated above threshold for referral. Blood pressure above 120/80 may indicate pre-hypertension. 147/89 use your inhaler as needed Patient Language: Belgian Prescriptions: New methylprednisolone [Medrol (Louis)] 4 mg tablets,dose pack See Rx Instructions .ROUTE .COMPLEX Qty: 21 0RF Rx Instructions: orally per package directions No Action albuterol sulfate 90 mcg/actuation HFA aerosol inhaler INHALATION Follow-up/Referrals: PHYSICIAN,RETAIL CUSTODIAL ASSOCIATE [Primary Care Provider] - Stand Alone Forms: Work/School Release IP Time of Disposition: 15:55 Quality [place] Coma Scale Eyes: Open Verbal: Oriented and Alert Motor: Follows Commands [place] Coma Total Score: 15
== END 2024-11-29 16:00 | disposition home or self-care (01) ==
PROVIDERS: Emergency Provider Registered Nurse
DX: T63.441A Toxic effect of venom of bees, accidental (unintentional), initial encounter (principal); F17.210 Nicotine dependence, cigarettes, uncomplicated
CPT/HCPCS: 99213; G0463

== ENCOUNTER 2025-07-11 16:18 | Emergency (ER) | payer SELFPAY ==
[2025-07-11 16:28] VITALS: BP 142/82; PULSE 83; RESP 18; TEMP 36.6; O2SAT 99
[2025-07-11 17:09] LABS: EDUAAPPEAR Clear; EDUABILI Negative (Negative); EDUABLOOD 2+ (Negative); EDUACOLOR1 Yellow; EDUAGLUCOSE Negative (Negative); EDUAKETONE Negative (Negative); EDUALEUKO Trace (Negative); EDUANITRATE Negative (Negative); EDUAPH 7.0; EDUAPROTEIN 2+ (Negative); EDUASPGRAVITY 1.025; EDUAUROBILI 0.2
[2025-07-11 17:10] LABS: BEDSIDEPREGUCG Negative (Negative)
--- NOTE | 2025-07-11 17:46 | ED_ITS ---
HPI - Abdominal Pain General Chief Complaint: Urogenital-Female Stated Complaint: stomach pain/nausea Source: patient Mode of arrival: ambulatory Limitations: no limitations History of Present Illness HPI narrative: Patient presents for evaluation of nausea and vomiting. Last night she developed some epigastric pressure. This morning she developed nausea and vomiting. She had an episode of incontinence of diarrhea when vomiting earlier today. No incontinence otherwise. Denies abdominal pain at the present time. She has a mild chronic cough, which she attributes to smoking. This is unchanged from her cough at baseline. No sore throat, otalgia shortness of breath. No recent sick contacts to her knowledge. She initially thought she had a kidney stone as she had right flank pain and some pressure in her vagina followed by dysuria. She has had kidney stones in the past. She denies flank pain at the present time. LMP 05/27/25. She took a home test which was negative. Denies vaginal bleeding and discharge. Related Data Home Medications ?Medication ?Instructions ?Recorded ?Confirmed ?Last Taken ?Type albuterol sulfate 90 mcg/actuation inhalation 11/29/24 Unknown History aerosol inhaler Allergies Allergy/AdvReac Type Severity Reaction Status Date / Time cefdinir (From Omnicef) Allergy Rash Verified 11/29/24 15:22 Review of Systems Review of Systems: CONSTITUTIONAL: Denies fever, chills, or sweats. EYES: Denies visual changes, redness, or discharge. ENT: Denies rhinorrhea, congestion, sore throat, or otalgia. CARDIOVASCULAR: Denies chest pain, palpitations, or edema. RESPIRATORY: Reports mild chronic cough, unchanged. Denies shortness of breath. GASTROINTESTINAL: Reports recent epigastric pressure, none currently. Reports nausea and vomiting. Reports 1 episode of diarrhea incontinence earlier whilel vomiting. GENITOURINARY: Reports dysuria and vaginal pressure when urinating. BACK: Reports recent right flank pain, none currently. SKIN: Denies rash or itching. MUSCULOSKELETAL: Denies joint pain, or myalgia. NEUROLOGIC: Denies headache, numbness, dizziness, or weakness. PSYCHIATRIC: Denies anxiety or depression. [facility] Past Medical History Medical History Chlamydia Ovarian teratoma left Fracture, finger left 5th Pneumonia Bronchitis Surgical History Surgical History History of tonsillectomy Family History Family History Mother Family history non-contributory Social History Social History Smoking packs per day: 0.25 Smoking cigarettes per day: 5.0 Smoking status: Current every day smoker Tobacco type: e-cigarettes/vaping Additional smoking assessment comments: former cigarette use now vapes Alcohol intake: unknown Substance use: current Substance use type: marijuana Living arrangements: with family Gender identity (if verbalized by the patient): Female Sexual Orientation (if Verbalized by the Patient): Straight or Heterosexual Spiritual care concerns: No Exam Narrative: GENERAL: Well-appearing, well-nourished, and in no acute distress. HEAD: Normocephalic, atraumatic. EYES: PERRLA and EOMI. ENT: Nares clear, no rhinorrhea or epistaxis. Mucous membranes moist. Oropharynx without tonsillar hypertrophy exudate or other lesions. Bilateral TMs pearly pelayo nonbulging NECK: Supple. No adenopathy or masses. No carotid bruits or JVD CHEST: Clear to auscultation. No respiratory distress. No wheezes rales or rhonchi HEART: Regular rate and rhythm. No murmur heard. Normal peripheral pulses. ABDOMEN: Soft, nondistended, normal active bowel sounds. Mild epigastric tenderness without rebound or guarding EXTREMITIES: Normal range of motion. No edema. SKIN: Warm, dry, no rash. NEURO: No focal deficits. Alert and oriented x3. PSYCH: Normal mood and affect. Course Course Emergency Course: This is a 24-year-old female who presented for evaluation nausea and vomiting. She has slight epigastric tenderness without rebound or guarding. I offered to send her to the emergency department. She declined. She indicates her abdominal pain is not overly bothersome. In terms of possibility of kidney stones, she indicates that her right flank pain is resolved. She does have leukocytes in her urine today as well as blood. Opted to treat with Macrobid. Pyridium for symptom control. Will discharge with Zofran. Increase hydration. Follow up with primary provider. Go to the ER for worsening symptoms. Patient in agreement with plan of care. Level of Care: Express Care Visit Vital Signs Vital signs: Vital Signs Temperature 36.6 C 07/11/25 16:28 Pulse Rate 83 07/11/25 16:28 Respiratory Rate 18 07/11/25 16:28 Blood Pressure 142/82 H 07/11/25 16:28 Pulse Oximetry 99 07/11/25 16:28 Oxygen Delivery Room Air 07/11/25 16:28 Temperature 36.6 C 07/11/25 16:28 Pulse Rate 83 07/11/25 16:28 Respiratory Rate 18 07/11/25 16:28 Blood Pressure 142/82 H 07/11/25 16:28 Pulse Oximetry 99 07/11/25 16:28 Oxygen Delivery Room Air 07/11/25 16:28 MDM - Abdominal Pain Lab Data Labs: Lab Results 07/11/25 Range/Units 17:07 POC Urine Color Yellow POC Urine Clarity Clear POC Urine pH 7.0 POC Ur Specif Cameron 1.025 POC Urine Protein 2+ (Negative) POC Ur Glucose (UA) Negative (Negative) POC Urine Ketones Negative (Negative) POC Urine Blood 2+ (Negative) POC Urine Nitrite Negative (Negative) POC Urine Bilirubin Negative (Negative) POC Urine Urobilinogen 0.2 POC U Leukocyte Esteras Trace (Negative) POC Urine HCG, Qual Negative (Negative) Discharge Plan Discharge Clinical Impression: Urinary tract infection, Nausea & vomiting Patient Disposition: Home Condition: Stable Instructions: Antibiotic Form, Urinary Tract Infection in Women (ED), Acute Nausea and Vomiting (DC) Patient Language: German Prescriptions: New phenazopyridine [Pyridium] 200 mg tablet 200 mg PO TID Qty: 6 0RF ondansetron 4 mg tablet,disintegrating 4 mg PO Q6H PRN (Reason: nausea and vomiting) Qty: 15 0RF No Action albuterol sulfate 90 mcg/actuation HFA aerosol inhaler INHALATION Follow-up/Referrals: Chalino Martini MD [Physician, Family Practice] Stand Alone Forms: Work/School Release IP Time of Disposition: 17:43
--- OUTSIDE RECORDS SUMMARY | 2025-07-11 19:46 | XMS_ITS | Clinical Summary ---
Author Organization [address] Address [address] [place] [address] Care Team Providers Care Curriculum Counselor Name Role Phone Unknown, Notinfile Primary Care Provider Unavail able No, Physician Unavailable Allergies Active Allergy Reactions Criticality Noted Date Comments Cefdinir Rash Medium 10/28/2024 Vomiting Cefdinir Hives Medium 06/23/2022 Medications No known medications Active Problems No known active problems Social History Tobacco Use Types Packs/Day Years Used Date Smoking Tobacco: Never Assessed Personal Safety Answer Date Recorded Have you ever been in or are you currently in a harmful physical or emotional relationship or is someone making you feel afraid or unsafe? Denies 02/04/2025 Comments No Sex and Gender Information Value Date Recorded Sex Assigned at Not on file Legal Sex Female 1:48 PM CDT Gender Identity Female 06/23/2022 2:53 PM CDT Sexual Orientation Not on file Obstetrics History Last Filed Vital Signs Vital Sign Reading Time Taken Comments Blood Pressure 127/91 02/24/2025 2:05 PM CDT Pulse 83 02/24/2025 2:05 PM CDT Temperature 36.7 C (98.1 F) 02/04/2025 3:48 PM CDT Respiratory Rate 13 02/24/2025 2:0 5 PM CDT Oxygen Saturation 98% 02/04/2025 8:10 PM CDT Inhaled Oxygen Concentration - - Weight 131.7 kg (290 lb 6.4 oz) 02/24/2025 2:05 PM CDT Height 165.1 cm (5' 5) 02/24/2025 2:05 PM CDT Body Mass Index 48.33 02/24/2025 2:05 PM CDT Plan of Treatment Health Maintenance Due Date Last Done Comments Cervical Cancer Screening 1998 Depression Screening 1998 Hepatitis C Screening 1998 HPV Vaccines (2 - 2-dose series) 11/10/2009 05/10/2009 Regular Well Visit/Exam 18-64 2016 DTaP/Tdap/Td Vaccine (7 - Td or Tdap) 07/09/2021 07/09/2011, 07/17/2003, 08/09/2000, Additional history exists Influenza Vaccine (#1) 2025 07/12/2013, 2010 Hepatitis B Screening Completed 12/03/1999 , 09/10/1999, 1998 Varicella Vaccines Completed 07/09/2011, 03/09/2000 Pneumococcal vaccine <65 Aged Out No longer eligible based on patient's age to complete this topic Insurance [employer] CHOICE Care Teams Curriculum Counselor Relationship Specialty Start Date End Date Unknown, Notinfile PCP - General 10/27/24 No, Physician 10/27/24
== END 2025-07-11 17:52 | disposition home or self-care (01) ==
PROVIDERS: Emergency Provider Nurse Practitioner
DX: N39.0 Urinary tract infection, site not specified (principal); R11.2 Nausea with vomiting, unspecified; F17.210 Nicotine dependence, cigarettes, uncomplicated
CPT/HCPCS: 81003; 81025; 99213; G0463

== ENCOUNTER 2025-08-29 18:48 | Emergency (ER) | payer OTHER, SELFPAY ==
--- NOTE | ~2025-08-29 | XR_ITS ---
EXAMINATION: XR wrist RT min 3V DATE: 08/29/2025 19:17 INDICATION: Trauma. TECHNIQUE: 4 views of right wrist were obtained. COMPARISON: None. FINDINGS: No acute fractures at the right wrist. Intercarpal spaces are preserved. No fracture of the scaphoid bone is seen. Soft tissues are unremarkable. IMPRESSION: 1. No acute fractures at the right wrist. If symptoms are localized and persistent repeat x-rays suggested after a few days. Reviewed, dictated and finalized at location T. OR CONTROL SYSTEMS ENGINEER IMPRESSION: 1. No acute fractures at the right wrist. If symptoms are localized and persist ent repeat x-rays suggested after a few days.
[2025-08-29 18:58] VITALS: BP 145/84; PULSE 85; RESP 20; TEMP 36.9; O2SAT 100
--- NOTE | 2025-08-29 18:58 | ED_ITS ---
HPI - Extremity Injury (Upper) General Chief Complaint: Extremity Injury, Upper Stated Complaint: WC right wrist injury Time Seen by Provider: 08/29/25 19:30 Source: patient and RN notes reviewed Mode of arrival: ambulatory Limitations: no limitations History of Present Illness HPI narrative: 24-year-old female presents concern for right wrist pain that she injured while at work today. She reports she was lifting something heavy when her wrist got caught in between 2 heavy objects. She reports she felt a pop. She reports she was seen by the therapist at work put a brace on her wrist. She denies decreased strength, sensation, range of motion in the wrist or digits. MD complaint: injury to: right and wrist Related Data Home Medications ?Medication ?Instructions ?Recorded ?Confirmed ?Last Taken ?Type albuterol sulfate 90 mcg/actuation inhalation 11/29/24 Unknown History aerosol inhaler Allergies Allergy/AdvReac Type Severity Reaction Status Date / Time cefdinir (From Omnicef) Allergy Rash Verified 08/29/25 18:58 Review of Systems Review of Systems: CONSTITUTIONAL: Denies malaise, chills, sweats, or fever. CARDIOVASCULAR: Denies chest pain, palpitations, or edema. RESPIRATORY: Denies cough or dyspnea. SKIN: Denies rash or itching, bruising, redness, swelling. MUSCULOSKELETAL: Reports right wrist pain NEUROLOGIC: Denies numbness, weakness All systems reviewed & are unremarkable except as noted in HPI and below PMFSH Past Medical History Medical History Chlamydia Ovarian teratoma left Fracture, finger left 5th Pneumonia Bronchitis Surgical History Surgical History History of tonsillectomy Family History Family History Mother Family history non-contributory Social History Social History Smoking packs per day: 0.25 Smoking cigarettes per day: 5.0 Smoking status: Current every day smoker Tobacco type: e-cigarettes/vaping Additional smoking assessment comments: former cigarette use now vapes Alcohol intake: unknown Substance use: current Substance use type: marijuana Living arrangements: with family Gender identity (if verbalized by the patient): Female Sexual Orientation (if Verbalized by the Patient): Straight or Heterosexual Spiritual care concerns: No Comments At time of signature, agree with nursing past medical, surgical, social and family history. There is no relevant family history pertinent to the presenting complaint Exam Narrative: GENERAL: Well-appearing, well-nourished, and in no acute distress. HEAD: Normocephalic, atraumatic. EYES: PERRLA, conjunctivae clear NECK: Supple. CHEST: Speaks in full sentences. No respiratory distress. HEART: Regular rate and rhythm. Normal and equal peripheral pulses. EXTREMITIES: Right wrist, hand, digits have grossly normal strength and sensation, normal range of motion. No edema or ecchymosis. Normal sensation with sensitivity to light touch and pain. No point tenderness. No open wounds, no skin tenting, no devitalized tissue or atrophy, no trophic changes, no obvious deformity, alignment normal, nearby joints and structures intact. Distal pulses palpable and equal bilaterally, skin warm, dry, pink. Capillary refill less than 3 seconds. SKIN: Warm, dry, no rash. NEURO: Alert and oriented x3. PSYCH: Normal mood and affect Course Course Emergency Course: Patient is aware of diagnosis, understands and agrees to treatment plan. Anticipatory guidance given. Patient agrees to follow-up as directed and is aware of reasons to seek care at the emergency department. Portions of this record may have been created with voice recognition software Level of Care: Express Care Visit Vital Signs Vital signs: Vital Signs Temperature 98.4 F 08/29/25 18:58 Pulse Rate 85 08/29/25 18:58 Respiratory Rate 20 08/29/25 18:58 Blood Pressure 145/84 H 08/29/25 18:58 Pulse Oximetry 100 08/29/25 18:58 Oxygen Delivery Room Air 08/29/25 18:58 Temperature 98.4 F 08/29/25 18:58 Pulse Rate 85 08/29/25 18:58 Respiratory Rate 20 08/29/25 18:58 Blood Pressure 145/84 H 08/29/25 18:58 Pulse Oximetry 100 08/29/25 18:58 Oxygen Delivery Room Air 08/29/25 18:58 MDM Differential Diagnosis Differential Diagnosis: I evaluated this patient in the [facility] care. History is obtained from patient who is an independent historian and physical exam was performed.? Available medical records were reviewed. ? Exam findings and relevant testing show no acute concerns or changes; patient is non-toxic appearing and is in no distress. ? Patients injury and/or pain is consistent with musculoskeletal etiology. No signs of neurological or vascular compromise on exam. Compartments and tissues are soft without signs of compartment syndrome. Pain is felt appropriate for further evaluation on an outpatient basis. Differential diagnosis and treatment plan were discussed with the patient. Patient agrees with discussion and after shared medical decision making agrees with plan of care. All questions were answered to the patient's satisfaction. Patient is appropriate for outpatient treatment and follow-up. Lab Data Labs: Lab Results 08/29/25 Range/Units 19:09 POC Urine HCG, Qual Negative (Negative) Imaging Data Radiologist's impression: ITS Impressions Wrist X-Ray 08/29/25 19:23 IMPRESSION: 1. No acute fractures at the right wrist. If symptoms are localized and p ersistent repeat x-rays suggested after a few days. Discharge Plan Discharge Clinical Impression: Sprain and strain of wrist Patient Disposition: Home Condition: Stable Instructions: Wrist Sprain (ED) Additional Instructions: Avoid activities that cause pain until the pain subsides. Ice to the area 20-30 minutes 4-6 times a day Elevate above heart Elastic wrap as directed for comfort for the next 5-7 days Tylenol for lesser pain Ibuprofen regularly for the next 2-3 days for the inflammation Follow up with your primary care provider if the condition is not improving within 1 week. If the condition worsens with numbness, tingling, decrease sensation with weakness seek treatment in the emergency room immediately. Patient Language: Portuguese Prescriptions: No Action albuterol sulfate 90 mcg/actuation HFA aerosol inhaler INHALATION Follow-up/Referrals: PHYSICIAN,CORK COMPOUNDER [Primary Care Provider, Internal Medicine] Stand Alone Forms: Work/School Release IP Time of Disposition: 19:41
[2025-08-29 19:11] LABS: BEDSIDEPREGUCG Negative (Negative)
--- OUTSIDE RECORDS SUMMARY | 2025-08-29 19:17 | XMS_ITS | Clinical Summary ---
Author Organization [facility] [address] Address [address] [place] [address] Care Team Providers Care Pediatric Oncology Nurse Name Role Phone Unknown, Notinfile Primary Care [...] PM CDT Sexual Orientation Not on file Last Filed Vital Signs Vital Sign Reading Time Taken Comments Blood Pressure 127/91 02/24/2025 2:05 PM CDT Pulse 83 02/24/2025 2:05 PM CDT Temperature 36.7 C (98.1 F) 02/04/2025 3:48 PM CDT Respiratory Rate 13 02/24/2025 2:05 PM CDT Oxygen Saturation 98% 02/04/2025 8:10 [...] patient's age to complete this topic Insurance [employer] CHOICE [facility] Address: [facility] [id number] [place] [address] Care Teams Pediatric Oncology Nurse Relationship Specialty Start Date End Date Unknown, Notinfile PCP - General 10/27/24 No, Physician 10/27/24
== END 2025-08-29 19:45 | disposition home or self-care (01) ==
PROVIDERS: Emergency Provider Nurse Practitioner
DX: S63.501A Unspecified sprain of right wrist, initial encounter (principal); S66.911A Strain of unspecified muscle, fascia and tendon at wrist and hand level, right hand, initial encounter; X58.XXXA Exposure to other specified factors, initial encounter; Y99.0 Civilian activity done for income or pay
CPT/HCPCS: 73110; 81025; 99213; G0463